=== PATIENT | male | born 1965 | race Two or more races ===

== ENCOUNTER 2023-10-14 12:28 | Emergency (ER) | payer SELFPAY ==
[~2023-10-14] VITALS: Ht 180.3 cm; Wt 82.0 kg
[2023-10-14 12:35] VITALS: O2SAT 97
[2023-10-14] MEDS ORDERED: IBUP-2029 MT (14:44)
[2023-10-14 15:03] VITALS: BP 131/93; PULSE 66; RESP 18; TEMP 97.4
== END 2023-10-14 15:09 | disposition home or self-care (01) ==
LOC: ER 12:28
DX: S09.8XXA Other specified injuries of head, initial encounter (principal); I10 Essential (primary) hypertension; W18.39XA Other fall on same level, initial encounter; Y93.89 Activity, other specified; Y92.89 Other specified places as the place of occurrence of the external cause; Y99.8 Other external cause status
CPT/HCPCS: 99284